=== PATIENT | male | born 1975 | race American Indian/Alaskan Native ===

== ENCOUNTER 2022-02-17 19:14 | Emergency (ER) | payer SELFPAY ==
[2022-02-17] MEDS ORDERED: ACETAMINOPHEN 500 MG TAB PO ONE (20:26)
--- NOTE | 2022-02-18 03:52 | XRay Report ---
CHEST 2 VIEWS INDICATION / CLINICAL INFORMATION: cough and fever. COMPARISON: None available. FINDINGS: SUPPORT DEVICES: None. HEART / MEDIASTINUM: Heart size and mediastinal contour appear within normal limits. LUNGS / PLEURA: No significant pulmonary or pleural abnormality. No pneumothorax. BONES: No significant osseous abnormality. ADDITIONAL FINDINGS: No significant additional findings. IMPRESSION: 1. No active cardiopulmonary disease. Signer Name: Sergo Cr II, MD Signed: 02/18/2022 3:48 AM Workstation Name: [id number]
--- NOTE | 2022-02-18 04:33 | Emergency Department Report ---
ED General Adult HPI - General Chief complaint: Fever Stated complaint: BODY PAIN Time Seen by Provider: 02/18/22 02:43 Source: patient Mode of arrival: Ambulatory Limitations: No Limitations - History of Present Illness Initial comments: 46-year-old male presents emerged part complaining of 1 to 2-day history of diffuse body aches with coryza and fever but no chest pain palpitation. No nausea, no vomiting -: Gradual Radiation: non-radiation Severity scale (0 -10): 8 Quality: dull Consistency: constant Improves with: none Worsens with: none Associated Symptoms: denies other symptoms. denies: loss of appetite, rash, seizure, weakness Treatments Prior to Arrival: none - Related Data Previous Rx's Medication Instructions Recorded Last Taken Type Ketorolac [Toradol] 10 mg PO Q8H PRN #12 02/18/22 Unknown Rx Allergies Allergy/AdvReac Type Severity Reaction Status Date / Time No Known Allergies Allergy Unverified 02/17/22 20:22 ED Review of Systems ROS: Stated complaint: BODY PAIN Other details as noted in HPI Comment: All other systems reviewed and negative ED Past Medical Hx - Medications Home Medications: Home Medications Medication Instructions Recorded Confirmed Last Taken Type Ketorolac [Toradol] 10 mg PO Q8H PRN #12 02/18/22 Unknown Rx ED Physical Exam - General Limitations: No Limitations General appearance: alert, in no apparent distress - Head Head exam: Present: atraumatic, normocephalic - Eye Eye exam: Present: normal appearance, PERRL Pupils: Present: normal accommodation - ENT ENT exam: Present: normal orophraynx, mucous membranes moist, TM's normal bilaterally - Neck Neck exam: Present: normal inspection, tenderness, full ROM - Respiratory Respiratory exam: Present: normal lung sounds bilaterally. Absent: respiratory distress - Cardiovascular Cardiovascular Exam: Present: regular rate, normal rhythm. Absent: systolic murmur, diastolic murmur, rubs, gallop - GI/Abdominal GI/Abdominal exam: Present: soft, normal bowel sounds - Rectal Rectal exam: Present: deferred - Extremities Exam Extremities exam: Present: normal inspection - Back Exam Back exam: Present: normal inspection. Absent: CVA tenderness (R), CVA tenderness (L) - Neurological Exam Neurological exam: Present: alert, oriented X3, CN II-XII intact - Psychiatric Psychiatric exam: Present: normal affect, normal mood - Skin Skin exam: Present: warm, dry, intact, normal color. Absent: rash ED Course Vital Signs 02/17/22 02/17/22 02/18/22 20:17 21:48 05:03 Temperature 101.4 F H 99.7 F H Pulse Rate 99 H 68 Respiratory 18 16 Rate Blood Pressure 102/63 132/72 [Right] O2 Sat by Pulse 100 99 Oximetry ED Medical Decision Making - EKG Data When compared to previous EKG there are: no significant change - Radiology Data Radiology results: report reviewed [facility] [address] [place] [address] XRay Report Signed Patient: DIRK CANNON MR#: [id number] : 1975 Acct:[id number] Age/Sex: 46 / M ADM Date: 02/17/22 Loc: ED Attending Dr: Ordering Physician: KAITLIN LORA Date of Service: 02/18/22 Procedure(s): XR chest routine 2V Accession Number(s): [id number] cc: KATILIN LORA Fluoro Time In Minutes: CHEST 2 VIEWS INDICATION / CLINICAL INFORMATION: cough and fever. COMPARISON: None available. FINDINGS: SUPPORT DEVICES: None. HEART / MEDIASTINUM: Heart size and mediastinal contour appear within normal limits. LUNGS / PLEURA: No significant pulmonary or pleural abnormality. No pneumothorax. BONES: No significant osseous abnormality. ADDITIONAL FINDINGS: No significant additional findings. IMPRESSION: 1. No active cardiopulmonary disease. Signer Name: Destinee Jefferson II, MD Signed: 02/18/2022 3:48 AM Workstation Name: [id number] Transcribed By: RONALD Dictated By: DESTINEE JEFFERSON II, MD Electronically Authenticated By: DESTINEE JEFFERSON II, MD Signed Date/Time: 02/18/22347 DD/ 7 TD/TT: Print - Medical Decision Making Problem 1 URI symptoms This 46-year-old patient presents with symptoms suspicious for likely viral upper respiratory tract infection. Differential includes bacterial pneumonia, sinusitis, allergic rhinitis, COVID-19. Do not suspect underlying Cardiopulmonary process. I considered but think unlikely dangerous cause of this patient symptoms to include acute coronary syndrome, CHF or COPD exacerbations, pneumonia, pneumothorax. Patient is nontoxic appearing and not in need of emergent medical intervention. Plan: Reassurance, reassessment, [id number] medications, discharge with PCP follow-up Problem 2 infection exposure this patient presents to the emergency department with fever and lower respiratory symptoms concerning for viral syndrome including flu and COVID-19. Patient has suspicion and is for COVID-19 infection. Differential diagnosis includes other viral causes of lower respiratory symptoms, pneumonia, asthma, bronchitis. Patient is well-appearing with acceptable vitals, lacks comorbidities admission and a reassuring physical examination and is safe to be discharged home nasal swab for COVID testing is recommended. Provide strict return precautions and instructions on self isolation/quarantine and anticipatory guidance. Critical care attestation.: If time is entered above; I have spent that time in minutes in the direct care of this critically ill patient, excluding procedure time. ED Disposition Clinical Impression: URI (upper respiratory infection), Fever, COVID-19 virus test result unknown Disposition: 01 HOME / SELF CARE / HOMELESS Is pt being admited?: No Does the pt Need Aspirin: No Condition: Stable Instructions: Cool Mist Vaporizer, Cough, Adult, [id number], Upper Respiratory Infection, Adult, Cough, Adult Additional Instructions: Chest x-ray normal. Recommend obtaining COVID-19 test Prescriptions: Ketorolac [Toradol] 10 mg PO Q8H PRN #12 PRN Reason: Pain Referrals: ZO BLAKE MD [Primary Care Provider] - 3-5 Days Forms: Work/School Release Form(ED)
[2022-02-18 05:05] VITALS: BP 132/72
== END 2022-02-18 05:03 | disposition home or self-care (01) ==
LOC: ED 19:14
DX: J06.9 Acute upper respiratory infection, unspecified (principal); R05.9 Cough, unspecified; Z20.822 Contact with and (suspected) exposure to COVID-19
CPT/HCPCS: 71046; 99283